=== PATIENT | male | born 1995 | race Caucasian/White ===

== ENCOUNTER 2017-06-17 09:16 | Outpatient (CLI) | payer BC ==
[2017-06-17] MEDS ORDERED: ISOVUE-370 76%-LOCM 1 ML ONE (10:06)
--- NOTE | 2017-06-17 13:09 | CT ---
CONTRAST ENHANCED CTA CHEST: HISTORY: Chest pain for two months. Coronary mapping. FINDINGS: Contrast enhanced CTA of chest is performed. No significant evidence of pulmonary parenchymal lesion s or masses seen. No evidence of lymphadenopathy is seen. No definite evidence of coronary artery a bnormalities or anomalies seen. IMPRESSION: Unremarkable contrast enhanced CTA chest. POS: [facility]
== END 2017-06-17 09:17 | disposition home or self-care (01) ==
LOC: CT 09:16
PROVIDERS: ATTEND Internal Medicine Cardiovascular Disease
DX: R07.9 Chest pain, unspecified (principal)
CPT/HCPCS: 71275